=== PATIENT | male | born 2000 | race Caucasian/White ===

== ENCOUNTER 2025-03-04 20:46 | Emergency (ER) | payer BC, SELFPAY ==
[2025-03-04 20:52] VITALS: BP 152/101; PULSE 81; RESP 18; TEMP 36.4; O2SAT 99; BMI 27.9
[2025-03-04 22:35] VITALS: O2SAT 98
--- NOTE | 2025-03-04 22:35 | CRLHL7_ITS ---
For Patients: As a result of the Century Cures Act, medical imaging exams and procedure reports are released immediately into your electronic medical record. You may view this report before your referring provider. If you have questions, please contact your health care provider. INDICATION: Chest pain. TECHNIQUE: Chest 2 views. COMPARISON: None. FINDINGS: Cardiovascular and mediastinum: Heart size and vasculature are normal in caliber and appearance. Lungs and pleural spaces: Lungs are clear. No sign of infiltrate or mass. No sign of pleural effusion. No pneumothorax. Bones and soft tissues: No significant findings. IMPRESSION: No acute or significant findings. Dictated by Leno Page MD @ 03/04/2025 11:06:26 PM (Electronically Signed)
[2025-03-04] MEDS: ASPIRIN 81 MG TAB.CHEW 324 MG PO (22:44)
[2025-03-04] MEDS: 0.9 % SODIUM CHLORIDE 1000 ml 1,000 ML IV (22:44)
--- NOTE | 2025-03-04 22:48 | ED_ITS ---
HPI - Chest Pain General Date Seen: 03/04/25 Chief Complaint: Chest Pain Stated Complaint: Chest pain Time Seen by Provider: 03/04/25 22:16 Source: patient Mode of arrival: ambulatory Limitations: no limitations History of Present Illness HPI narrative: Patient is a 25-year-old gentleman who presents here with a history of chest pain stomach pain and cramps started he is not taking any medications for these, he takes a deep breath in he notices he has chest pain, he has no nausea no vomiting, no diarrhea associated with this. He is not taking any substances or illicit her even [id number] medications for this he has never had this before is no rash no history of chest discomfort. MD complaint: chest pain Onset (ago): day(s) Timing of current episode: episodic Prior episodes: No Onset: during rest Pain location: left chest Pain radiation: none Quality: tightness Relieving factors: nothing Exacerbating factors: nothing Associated symptoms: nausea Treatment prior to arrival: none Risk Factors Coronary artery disease risk factors: none Thoracic aortic dissection risk factors: none Related Data Allergies Allergy/AdvReac Type Severity Reaction Status Date / Time nisoldipine (From Sular) Allergy Intermediate Verified 03/04/25 20:54 Review of Systems Status of ROS Reports: 10 or more systems reviewed and unremarkable except as noted in History and below Exam Narrative Exam Narrative: Patient is seen in room 3 he is in no apparent distress his pupils equal round reactive to light there is no scleral icterus redness is TMs are normal oropharynx normal there is no adenopathy anterior posterior chains his neck is supple full range of motion chest is good air entry bilateral with no wheezing crackles noted his heart sounds are normal his abdomen is soft there is no guarding no organomegaly bowel sounds are normal moves all extremities independently and well, no edema, no evidence of rashes or petechiae, neurologically intact moving his upper lower extremities. Const Vital Signs, click to edit/add: Vital Signs - 24 hr 03/04/25 20:52 03/04/25 22:35 Temperature 97.6 F Pulse Rate [Left Pulse Oximeter] 81 Respiratory Rate 18 Blood Pressure [Right Upper Arm] 152/101 H Pulse Oximetry 99 98 Oxygen Delivery Method Room Air Documenting provider has reviewed patient's vital signs: yes Course Course ED Course: Discussed with the patient that is testing is all negative, I can find no evidence of any significant abnormality of his heart or lungs. This point given his constellation of symptoms I think ibuprofen and watchful waiting would be indicated. He was in agreement with this. Vital Signs Vital signs: Initial Vital Signs Temperature 97.6 F 03/04/25 20:52 Temperature Source Temporal Artery Scan 03/04/25 20:52 Pulse Rate 81 03/04/25 20:52 Pulse Rhythm Regular 03/04/25 20:52 Respiratory Rate 18 03/04/25 20:52 Blood Pressure 152/101 H 03/04/25 20:52 Blood Pressure Mean 118 H 03/04/25 20:52 Blood Pressure Position Sitting 03/04/25 20:52 Pulse Oximetry 99 03/04/25 20:52 Oxygen Delivery Method Room Air 03/04/25 20:52 Vital Signs Temperature 97.6 F 03/04/25 20:52 Pulse Rate 81 03/04/25 20:52 Respiratory Rate 18 03/04/25 20:52 Blood Pressure 152/101 H 03/04/25 20:52 Pulse Oximetry 99 03/04/25 20:52 Oxygen Delivery Method Room Air 03/04/25 20:52 Temperature 97.6 F 03/04/25 20:52 Pulse Rate 81 03/04/25 20:52 Respiratory Rate 18 03/04/25 20:52 Blood Pressure 152/101 H 03/04/25 20:52 Pulse Oximetry 98 03/04/25 22:35 Oxygen Delivery Method Room Air 03/04/25 20:52 Medications Administered Medications: Discontinued Medications Generic Name Dose Route Start Last Admin Trade Name Freq PRN Reason Stop Dose Admin Aspirin 324 mg 03/04/25 22:35 03/04/25 22:44 Aspirin 81 Mg Tab.Chew PO 03/04/25 22:36 324 mg ONCE ONE Administration Sodium Chloride 1,000 mls @ 1,000 mls/hr 03/04/25 22:45 03/04/25 22:44 0.9 % Sodium Chloride 1000 Ml IV 03/04/25 23:44 1,000 mls/hr .Q1H BRANDY Administration MDM - Chest Pain MDM Narrative Medical decision making narrative: During the evaluation of this patient I considered multiple differential diagnosis is. The life-threatening differential diagnosis include coronary disease/MO, pulmonary embolism, pneumothorax, pneumonia, and aortic dissection. Other differential diagnosis included but were not limited to pericarditis, myocarditis, chest wall pain, GERD, esophageal rupture, rib fracture contusion, pleurisy, as well as other etiologies. Medical Records Data Attestation: I reviewed the patient's medical records. Lab Data Attestation: I reviewed the patient's lab results. Labs: Lab Results 03/04/25 03/04/25 Range/Units 22:36 22:42 WBC 7.17 (4.50-11.00) K/uL RBC 5.15 (4.30-5.90) m/uL Hgb 14.6 (13.5-17.5) gm/dL Hct 44.0 (37.0-53.0) % MCV 85 (80-100) fL MCH 28 (26-34) pg MCHC 33 (32-36) gm/dL RDW Coeff of Judie 12.1 (11.5-15.5) % Plt Count 221 (140-440) K/uL Neut % (Auto) 61.2 (42.0-72.0) % Lymph % (Auto) 29.4 (20-44) % Atkinson % (Auto) 7.9 (0.0-11.0) % Eos % (Auto) 0.6 (0.0-7.0) % Baso % (Auto) 0.1 (0.0-3.0) % Neut # (Auto) 4.38 (1.7-7.0) K/uL Lymph # (Auto) 2.11 (0.90-2.90) K/uL Atkinson # (Auto) 0.60 (0.00-0.90) K/UL Eos # (Auto) 0.04 (0.00-0.50) K/uL Baso # (Auto) 0.01 (0.00-0.30) K/uL Abs Immat Gran (auto) 0.06 (0.00-0.30) K/uL Imm/Tot Granulo (auto) 0.8 % D-Dimer Quant (PE/DVT) 0.09 (0.00-0.50) ug/ml Sodium 138 (135-149) mmol/L Potassium 4.0 (3.6-5.1) mmol/L Chloride 105 (96-114) mmol/L Carbon Dioxide 25 (20-32) mmol/L Anion Gap 8 (7-15) mEq/L BUN 20 (5-24) mg/dL Creatinine 1.0 (0.5-1.5) mg/dL Estimated Creat Clear 122.36 Estimated GFR 108 ml/min Glucose 102 (60-115) mg/dL Calcium 9.5 (8.4-10.6) mg/dL Total Bilirubin 0.5 (0.1-1.5) mg/dL Direct Bilirubin 0.4 (0.0-0.5) mg/dL AST 29 (12-35) U/L ALT 34 (4-50) U/L Alkaline Phosphatase 82 (40-150) U/L Total Creatine Kinase 35 L (54-186) U/L C-Reactive Protein 0.5 (0.5-1.0) mg/dL NT-Pro-B Natriuret Pep < 20 pg/mL Total Protein 6.8 (6.0-8.3) g/dL Albumin 4.5 (3.3-5.0) g/dL Lipase 82 (23-300) U/L POC Troponin I 0.01 (0.01-0.04) ng/ml Imaging Data Chest x-ray: Attestation: I have reviewed the pertinent imaging results. My impression: The chest Radiologist's impression: [place] [address] Diagnostic Imaging Report Patient: [place] Landa MR#: [id number] : 2000 Acct:[id number] Loc: ED Service Date: 03/04/[address]: Ordering Physician: Jarad Lujan M.D. Date of Service: 03/04/25 Procedure(s): XR chest 2V Accession Number(s): [id number] cc: Jarad Lujan M.D.~ For Patients: As a result of the Century Cures Act, medical imaging exams and procedure reports are released immediately into your electronic medical record. You may view this report before your referring provider. If you have questions, please contact your health care provider. INDICATION: Chest pain. TECHNIQUE: Chest 2 views. COMPARISON: None. FINDINGS: Cardiovascular and mediastinum: Heart size and vasculature are normal in caliber and appearance. Lungs and pleural spaces: Lungs are clear. No sign of infiltrate or mass. No sign of pleural effusion. No pneumothorax. Bones and soft tissues: No significant findings. IMPRESSION: No acute or significant findings. Dictated by Leno Page MD @ 03/04/2025 11:06:26 PM (Electronically Signed) ECG Data Attestation: I personally reviewed and interpreted this ECG as follows: ECG interpretation date: 03/05/25 Prior ECG tracings: not available for review Interpretation: EKG shows normal sinus rhythm with sinus arrhythmia, no acute ST wave changes, nonspecific changes, Discharge Plan Discharge Clinical Impression: Chest pain Patient Disposition: Home w/ Parent or Adult Condition: Stable Instructions: Chest Pain (DC) Additional Instructions: Home rest, I am not sure if you are getting a virus or something, with your constellation of symptoms, I do know that all your testing for your heart and lungs was normal, I am reassured we can send you home I would use some ibuprofen 800 mg by mouth 3 times a day. Follow-up with primary care on an as-needed basis. Return as needed Activity Level: Light activity Follow Up/Referrals: Provider,Not a Local [Primary Care Provider] - Stand Alone Forms: Say-Hey Info Instructions
[2025-03-04 22:53] LABS: Basophils Absolute Auto 0.01 K/uL (0.00-0.30); Basophils Percent Auto 0.1 % (0.0-3.0); Eosinophils Absolute Auto 0.04 K/uL (0.00-0.50); Eosinophils Percent Auto 0.6 % (0.0-7.0); Hemoglobin* 14.6 gm/dL (13.5-17.5); Immature Granulocytes Abs Auto 0.06 K/uL (0.00-0.30); Immature Granulocytes Pct Auto 0.8 %; Lymphocytes Absolute Auto 2.11 K/uL (0.90-2.90); Lymphocytes Percent Auto 29.4 % (20-44); Mean Corpuscular HGB Conc 33 gm/dL (32-36); Mean Corpuscular Hemoglobin 28 pg (26-34); Mean Corpuscular Volume 85 fL (80-100); Monocytes Percent Auto 7.9 % (0.0-11.0); Neutrophils Absolute Auto 4.38 K/uL (1.7-7.0); Neutrophils Percent Auto 61.2 % (42.0-72.0); Platelet Count* 221 K/uL (140-440); RDW Coefficient of Variation % 12.1 % (11.5-15.5); Red Blood Count 5.15 m/uL (4.30-5.90); White Blood Count* 7.17 K/uL (4.50-11.00)
[2025-03-04 23:00] LABS: Slide Review Reflex No
[2025-03-04 23:04] LABS: Troponin, Point-of-Care* 0.01 ng/ml (0.01-0.04)
[2025-03-04 23:07] LABS: Albumin* 4.5 g/dL (3.3-5.0); Chloride* 105 mmol/L (96-114); Sodium* 138 mmol/L (135-149)
[2025-03-04 23:10] LABS: Alanine Aminotransferase* 34 U/L (4-50); Alkaline Phosphatase* 82 U/L (40-150); Anion Gap 8 mEq/L (7-15); Aspartate Amino Transferase* 29 U/L (12-35); Bilirubin Direct* 0.4 mg/dL (0.0-0.5); Bilirubin Total* 0.5 mg/dL (0.1-1.5); Blood Urea Nitrogen* 20 mg/dL (5-24); Carbon Dioxide* 25 mmol/L (20-32); Creatine Kinase* 35 U/L (54-186); Est. Creatinine Clearance* 122.36; Estimated Glomerular Filt Rate 108 ml/min; Total Protein* 6.8 g/dL (6.0-8.3)
[2025-03-04 23:11] LABS: Calcium* 9.5 mg/dL (8.4-10.6); Glucose* 102 mg/dL (60-115); Lipase* 82 U/L (23-300)
[2025-03-04 23:13] LABS: C Reactive Protein* 0.5 mg/dL (0.5-1.0)
[2025-03-04 23:21] LABS: NT Pro B Type NatriureticPept* < 20 pg/mL
[2025-03-04 23:23] LABS: D Dimer Quantitative* 0.09 ug/ml (0.00-0.50)
== END 2025-03-05 00:22 | disposition home or self-care (01) ==
PROVIDERS: Emergency Provider Family Medicine
DX: R07.9 Chest pain, unspecified (principal)
CPT/HCPCS: 36415; 71046; 80048; 80076; 82550; 83690; 83880; 84484; 85025; 85379; 86140; 93005; 94761; 99284; 99285; A9270; J7030